=== PATIENT | female | born 1940 | race Caucasian/White ===

== ENCOUNTER → 2017-02-26 | Outpatient (REF) | payer OTHER | LOC: M LAB REF 13:00 | PROVIDERS: ATTEND Nurse Practitioner Adult Health | DX: E83.52 Hypercalcemia (principal) ==

== ENCOUNTER → 2017-03-04 | Outpatient (CLI) | payer OTHER ==
--- NOTE | 2017-03-04 10:08 | REP ---
Clinical: Shortness of breath. Technique: PA and lateral. Comparison: None. Findings: Chronic scoliosis noted. Mediastinum and cardiac silhouette are otherwise normal. Lung lilly are relatively clear and without focal consolidation, effusion, or pneumothorax. Subtle increased markings likely represent chronic changes although mild bronchitis cannot be excluded. Impression: 1. Chronic scoliosis. 2. Increased markings may reflect chronic changes versus mild bronchitis. 3. No focal consolidation or effusion. Signed by Dev Herrera MD 03/04/2017 10:00 A
== END ==
LOC: M WUC 09:21
PROVIDERS: ATTEND Nurse Practitioner Adult Health
DX: R91.8 Other nonspecific abnormal finding of lung field (principal); M41.9 Scoliosis, unspecified

== ENCOUNTER → 2017-03-31 | Outpatient (REF) | payer OTHER ==
[2017-04-01 13:58] LABS: ALBUMIN 4.49 GM/DL (3.29-5.55); ALBUMIN % 64.1 % (55.8-66.1); GAMMA GLOBULIN % 10.1 % (11.1-18.8)
== END ==
LOC: M LAB REF 16:45
PROVIDERS: ATTEND Nurse Practitioner Adult Health
DX: E83.52 Hypercalcemia (principal); I12.9 Hypertensive chronic kidney disease with stage 1 through stage 4 chronic kidney disease, or unspecified chronic kidney disease; N18.3 Chronic kidney disease, stage 3 (moderate)

== ENCOUNTER → 2018-01-14 | Outpatient (REF) | payer OTHER ==
[2018-01-14 15:07] LABS: PTH INTACT 80.7 PG/ML (18.5-88.0)
== END ==
LOC: M LAB REF 13:35
DX: E83.52 Hypercalcemia (principal); N18.3 Chronic kidney disease, stage 3 (moderate)
CPT/HCPCS: 83970

== ENCOUNTER → 2018-08-15 | Outpatient (CLI) | payer OTHER | LOC: M WHC 08:07 | DX: Z12.31 Encounter for screening mammogram for malignant neoplasm of breast (principal); M81.0 Age-related osteoporosis without current pathological fracture | CPT/HCPCS: 77067 ==

== ENCOUNTER → 2023-05-27 | Outpatient (REF) | payer OTHER | LOC: M LAB REF 16:20 | PROVIDERS: ATTEND Nurse Practitioner Adult Health | DX: N39.0 Urinary tract infection, site not specified (principal); R31.9 Hematuria, unspecified; E83.52 Hypercalcemia ==